=== PATIENT | female | born 1990 | race African-American/Black ===

== ENCOUNTER 2022-09-12 01:14 | Emergency (ER) | payer BC ==
[2022-09-12] MEDS ORDERED: Dexamethasone 10 MG/ML VIAL ONE (03:24)
[2022-09-12] MEDS ORDERED: Ketorolac Tromethamine 30 MG/ML VIAL ONE (03:25)
[2022-09-12] MEDS ORDERED: Prochlorperazine 10 MG/2 ML VIAL ONE (03:25)
[2022-09-12] MEDS ORDERED: diphenhydrAMINE 50 MG/ML VIAL ONE (03:25)
[2022-09-12 03:30] LABS: Bilirubin Neg (Negative); Blood, Urine 50 (Negative); Clarity Clear (Clear); Glucose, Urine (Dipstick) Normal (Negative); Ketone, Urine Negative (Negative); Leukocyte Negative (Negative); Nitrite Negative (Negative); Protein, Urine (Dipstick) Negative (Neg-Trace); Urobilinogen Normal mg/dL (Less than 2)
[2022-09-12 03:31] LABS: #Basophils 0.2 10x3/uL (0.0-0.2); #Eosinphils 0.2 10x3/uL (0.0-0.5); #Monocytes 0.7 10x3/uL (0.0-1.1); #Neutrophils 5.4 10x3/uL (1.5-8.4); %Basophils 1.5 % (0.0-2.0); %Eosinophils 2.4 % (0.0-6.0); %Lymphocytes 34.1 % (18.0-47.0); %Monocytes 7.4 % (0.0-10.0); %Neutrophils 54.4 % (40.0-75.0); Hemoglobin 11.6 g/dL (12.0-15.5); Mean Corpuscular HGB CONC 32.3 g/dL (32.0-36.0); Mean Corpuscular Hemoglobin 26.4 pg (27.0-33.0); Mean Corpuscular Volume 81.8 fl (81.6-98.3); Mean Platelet Volume 11.9 fl (7.4-10.4); Platelet Count 382 10x3/uL (150-450); Red Blood Cell (RBC) Count 4.39 10x6/uL (3.90-5.03); White Blood Cell (WBC) Count 9.9 10x3/uL (3.5-10.5)
[2022-09-12 03:32] LABS: Pregnancy Test - Urine (BHCG) Negative (Negative); Pregu Control Background? CLEAR/WHITE (CLR/WHITE); Pregu Control Bar Appear? YES (CONTROL BAR)
[2022-09-12 03:41] LABS: ALT (SGPT) 15 U/L (8-55); AST (SGOT) 14 U/L (5-34); Albumin 4.4 g/dL (3.5-5.0); Alkaline Phosphatase 62 U/L (40-110); Anion Gap 12 mmol/L (10-20); BUN (Urea Nitrogen) 11 mg/dL (7.0-18.7); Bacteria/HPF Rare-Few HPF (None Seen); Bilirubin, Total 0.4 mg/dL (0.2-1.2); Calc. Creatinine Clearance 0 mL/min (70-130); Calcium 9.4 mg/dL (7.8-10.44); Carbon Dioxide 25 mmol/L (22-29); Chloride 104 mmol/L (98-107); Estimated GFR 99; Globulin 2.7 g/dL (2.4-3.5); Glucose 84 mg/dL (70-105); Potassium 3.5 mmol/L (3.5-5.1); Protein, Total 7.1 g/dL (6.0-8.3); Sodium 137 mmol/L (136-145); WBC/HPF 0-3 HPF (0-3)
== END 2022-09-12 05:28 | disposition home or self-care (01) ==
LOC: CSHERS 01:14
DX: G43.909 Migraine, unspecified, not intractable, without status migrainosus (principal); I10 Essential (primary) hypertension; R11.2 Nausea with vomiting, unspecified
CPT/HCPCS: 80053; 81003; 81015; 81025; 85025; 96372; 96374; 96375; J0780; J1100; J1200; J1885